=== PATIENT | female | born 1995 | race Caucasian/White ===

== ENCOUNTER 2021-03-06 09:11 | Outpatient (CLI) | payer BC ==
[2021-03-06 10:07] LABS: #Eosinphils 0.2 10x3/uL (0.0-0.5); #Monocytes 0.3 10x3/uL (0.0-1.1); #Neutrophils 2.1 10x3/uL (1.5-8.4); %Basophils 0.7 % (0.0-2.0); %Eosinophils 5.1 % (0.0-6.0); %Lymphocytes 38.4 % (18.0-47.0); %Monocytes 7.4 % (0.0-10.0); %Neutrophils 48.2 % (40.0-75.0); Hemoglobin 12.7 g/dL (12.0-15.5); Mean Corpuscular HGB CONC 33.4 g/dL (32.0-36.0); Mean Corpuscular Hemoglobin 29.7 pg (27.0-33.0); Mean Corpuscular Volume 88.8 fl (81.6-98.3); Platelet Count 216 10x3/uL (150-450); RBC Distribution Width 12.4 % (11.5-14.5); Red Blood Cell (RBC) Count 4.28 10x6/uL (3.90-5.03); White Blood Cell (WBC) Count 4.3 10x3/uL (3.5-10.5)
[2021-03-06 10:14] LABS: BHCG - Serum Negative (NEGATIVE); Pregs Control Background? CLEAR/WHITE (CLR/WHITE); Pregs Control Bar Appear? YES (CONTROL BAR)
[2021-03-06 10:18] LABS: Anion Gap 11 mmol/L (10-20); BUN (Urea Nitrogen) 12 mg/dL (7.0-18.7); Calc. Creatinine Clearance 0 mL/min (70-130); Calcium 9.2 mg/dL (7.8-10.44); Carbon Dioxide 27 mmol/L (22-29); Chloride 103 mmol/L (98-107); Glucose 92 mg/dL (70-105); Potassium 4.4 mmol/L (3.5-5.1); Sodium 137 mmol/L (136-145)
[2021-03-06 10:22] LABS: PTT 26.5 sec (22.0-33.0); Prothrombin Time 10.9 sec (9.5-12.1)
[2021-03-06 17:15] LABS: SARS-CoV-2 PCR by NAA Not Detected (NotDetected)
== END 2021-03-06 09:12 | disposition home or self-care (01) ==
LOC: CSHLAB 09:11
PROVIDERS: ATTEND Internal Medicine Cardiovascular Disease
DX: Z01.812 Encounter for preprocedural laboratory examination (principal); Z20.822 Contact with and (suspected) exposure to COVID-19; I47.1 Supraventricular tachycardia
CPT/HCPCS: 80048; 84703; 85025; 85610; 85730; 87635; U0003; U0005

== ENCOUNTER → 2021-03-11 | Day surgery (SDC) | payer BC ==
[~2021-03-11] MED LIST: Fentanyl 100 MCG/2 ML VIAL ONE; Heparin 10,000 UNITS/ 10 ML VIAL ONE; Lidocaine 1% (PF) 30 ML VIAL ONE; Midazolam HCl 2 mg/2 ml Vial ONE; Ondansetron PF 4 MG/2 ML Vial ONE; PROPOFOL 20 ML ONE; Propofol 1,000 MG/100 ML VIAL IV ONE
== END ==
LOC: CSHSDC 06:45
PROVIDERS: ATTEND Internal Medicine Cardiovascular Disease
DX: I47.1 Supraventricular tachycardia (principal); F31.81 Bipolar II disorder; G47.00 Insomnia, unspecified; F41.9 Anxiety disorder, unspecified; Z87.891 Personal history of nicotine dependence; Z79.899 Other long term (current) drug therapy
CPT/HCPCS: 93005; 93010; 93613; 93621; 93653; C1730; C1760; C1894; C2630; J1644; J2001; J2250; J2405; J2704; J3010